=== PATIENT | male | born 1985 | race Caucasian/White ===

== ENCOUNTER 2024-05-22 11:20 | Outpatient (CLI) | payer OTHER, SELFPAY ==
--- OUTSIDE RECORDS SUMMARY | 2024-05-22 11:24 | XMS_ITS | Clinical Summary ---
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 Name Role Phone Clinic, No Pcp Or Primary Care Provider Unavaila ble Allergies No known active allergies Medications No known medications Social History Tobacco Use Types Packs/Day Years Used Date Smoking Tobacco: Never Smokeless Tobacco: Never Alcohol Use Standard Drinks/Week Comments Yes 0 (1 standard drink = 0.6 oz pur e alcohol) Social Connections Answer Date Recorded Frequency of Communication with Friends and Fami ly Not on file 10/28/2023 Sex and Gender Information Value Date Recorded Sex Assigned at Not on file Gender Identity Not on file Sexual Orientation Not on file Obstetrics History Last Filed Vital Signs Vital Sign Reading Time Taken Comments Blood Pressure 157/107 09/25/2023 3:36 PM [facility] Pulse 90 09/25/2023 3:36 PM [facility] Temperature 36.9 ??C (98.5 ??F) 09/25/2023 3:36 PM [facility] T Respiratory Rate 16 09/25/2023 3:36 PM [facility] Oxygen Saturation 100% 09/25/2023 3:36 PM [facility] Inhaled Oxygen Concentration - - Weight 63.5 kg (140 lb) 09/25/2023 3:36 PM [facility] Height 175.3 cm (5' 9) 09/25/2023 3:36 PM [facility] Body Mass Index 20.67 09/25/2023 3:36 PM [facility] Plan of Treatment Health Maintenance Due Date Last Done Comments Tdap 1995 Depression screening for age 12+ 1996 HIV for age 15-65 1999 BMI (ht and wt on same day) for age 18+ 2002 Hepatitis C screening for ag e 18-79 2002 Tetanus booster 2004 Lipids for age 35-44 2019 COVID-19 vaccine series ( season) 2024 01/02/2021 Influenza for age 9-49 04/14/2024 Pneumococcal series for age 6-64 Aged Out No longer eligible based on patient's age to complete this topic Care Teams Cutter Aluminum Sheet Relationship Specialty Start Date End Date Clinic, No Pcp Or . PCP - General 11/13/17
== END 2024-05-22 11:21 | disposition home or self-care (01) ==
LOC: LKVREF 11:21
PROVIDERS: PCP Family Medicine; Visit Provider Family Medicine
DX: Z00.00 Encounter for general adult medical examination without abnormal findings (principal); Z13.6 Encounter for screening for cardiovascular disorders
CPT/HCPCS: 80061